=== PATIENT | male | born 1995 | race Caucasian/White ===

== ENCOUNTER 2018-03-08 00:22 | Emergency (ER) | payer SELFPAY ==
[2018-03-08] MEDS ORDERED: Sodium Chloride 0.9% 1,000 ML IV SCH (01:30)
--- NOTE | 2018-03-08 01:33 | ED PDOC ---
HPI: Psych/Substance Abuse Time Seen by Provider: 03/08/18 01:01 Chief Complaint (Nursing): Alcohol Ingestion Additional Complaint(s): 23 y/o M who was [place] to ED for [place] Pt seen sleeping in bed. Difficult to arouse but able to be aroused with sternal rub. Patient not speaking and agitated. Unable to obtain history. Past Medical History Vital Signs: Last Vital Signs Temp 97.3 F L 03/08/18 00:33 Pulse 78 03/08/18 00:33 Resp 18 03/08/18 00:33 BP 113/68 03/08/18 00:33 Pulse Ox 97 03/08/18 00:33 - Medical History PMH: Denies: Diabetes, Hepatitis, HIV, HTN, Seizures, Sexually Transmitted Disease - Family History Family History: States: Unknown Family Hx - Home Medications Home Medications: Ambulatory Orders Medication Instructions Recorded No Known Home Med 03/17/14 - Allergies Allergies/Adverse Reactions: Allergies Allergy/AdvReac Type Severity Reaction Status Date / Time No Known Allergies Allergy Unverified 03/17/14 14:22 Physical Exam - Reviewed Nursing Documentation Reviewed: Yes Vital Signs Reviewed: Yes - Physical Exam Appears: Negative for: Well (obtunded) Head Exam: Positive for: ATRAUMATIC Skin: Positive for: Normal Color Eye Exam: Positive for: PERRL, Conjunctival injection (B/L), Other Neck: Positive for: Normal Cardiovascular/Chest: Positive for: Regular Rate, Rhythm Respiratory: Positive for: Normal Breath Sounds Gastrointestinal/Abdominal: Positive for: Normal Exam Neurologic/Psych: Positive for: Alert (arousable to pain). Negative for: Facial Droop - Laboratory Results Result Diagrams: 03/08/18 03:04 03/08/18 03:04 - ECG O2 Sat by Pulse Oximetry: 97 Medical Decision Making Medical Decision Making: Pt intermittently agitated attempting to remove monitor. Haldol 5mg IM x 1 Ativan 2mg IM x 1 CBC, CMP, urine drug screen, Urine dip restraints for safety ETOH level 252 at 4am 06:00am: pt continues to be somnolent and difficult to arouse. Endorsed to Dr. Zhu pending clinical sobriety and re-evaluation. Disposition - Clinical Impression Clinical Impression: Alcohol abuse with intoxication - Disposition Disposition: Transfer of Care Disposition Time: 06:15 Condition: FAIR Forms: [employer] (Urdu)
[2018-03-08 02:16] LABS: BARBITURATES, UR NEGATIVE (NEGATIVE); BENZODIAZEPINES, UR NEGATIVE (NEGATIVE); OPIATES, UR NEGATIVE (NEGATIVE); PHENCYCLIDINE, UR NEGATIVE (NEGATIVE)
[2018-03-08 03:20] LABS: BLOOD UREA NITROGEN 12 mg/dl (9-20); CALCIUM 8.4 mg/dL (8.4-10.2); GFR NON-AFRICAN AMERICAN > 60
[2018-03-08 03:28] LABS: BASO % 0.2 % (0.0-2.0); EOS # 0.1 K/uL (0.0-0.7); EOS % 0.8 % (0.0-4.0); HEMOGLOBIN 14.4 g/dL (12.0-18.0); LYMPH # 2.8 K/uL (1.0-4.3); LYMPH % 46.4 % (20.0-40.0); MEAN CELL VOLUME 90.5 fl (80.0-94.0); MEAN CORPUSCULAR HEMOGLOBIN 29.5 pg (27.0-31.0); MEAN CORPUSCULAR HGB CONC 32.7 g/dL (33.0-37.0); MEAN PLATELET VOLUME 7.6 fl (7.2-11.7); MONO # 0.3 K/uL (0.0-0.8); MONO % 5.7 % (0.0-10.0); NEUT # 2.9 K/uL (1.8-7.0); NEUT % 46.9 % (50.0-75.0); NRBC % 0.2 % (0.0-0.0); RBC 4.86 Mil/uL (4.40-5.90); RED CELL DISTRIBUTION WIDTH 13.5 % (11.5-14.5); WHITE BLOOD COUNT 6.1 K/uL (4.8-10.8)
--- NOTE | 2018-03-08 06:14 | ED PDOC ---
- Laboratory Results Result Diagrams: 03/08/18 03:04 03/08/18 03:04 - ECG O2 Sat by Pulse Oximetry: 97 (RA) Pulse Ox Interpretation: Normal Medical Decision Making Medical Decision Making: Time: 06 Patient endorsed to me pending sobriety and reevaluation. ------ Scribe Attestation: Documented by Brian Oropeza, acting as a scribe for Mary Zhu MD. Provider Scribe Attestation: All medical record entries made by the Scribe were at my direction and personally dictated by me. I have reviewed the chart and agree that the record accurately reflects my personal performance of the history, physical exam, medical decision making, and the department course for this patient. I have also personally directed, reviewed, and agree with the discharge instructions and disposition. Disposition - Clinical Impression Clinical Impression: Alcohol abuse with intoxication - POA Present On Arrival: None - Disposition Disposition: Transfer of Care Disposition Time: 07:00 Condition: GOOD Instructions: Alcohol Use - When Is Drinking a Problem? Patient Signed Over To: Morgan Lozano
--- NOTE | 2018-03-08 07:25 | ED PDOC ---
- Laboratory Results Result Diagrams: 03/08/18 03:04 03/08/18 03:04 - ECG O2 Sat by Pulse Oximetry: 97 (RA) Pulse Ox Interpretation: Normal - Progress Re-evaluation Time: 13:30 Condition: Re-examined, Improved Medical Decision Making Medical Decision Makin Patient was endorsed to me by Dr. Zhu, pending sobriety and reevaluation. Scribe Attestation: Documented by Tyrell Snigh, acting as a scribe for Morgan Lozano MD. Provider Scribe Attestation: All medical record entries made by the Scribe were at my direction and personally dictated by me. I have reviewed the chart and agree that the record accurately reflects my personal performance of the history, physical exam, medical decision making, and the department course for this patient. I have also personally directed, reviewed, and agree with the discharge instructions and disposition. Disposition - Clinical Impression Clinical Impression: Alcohol abuse with intoxication - POA Present On Arrival: None - Disposition Disposition: Routine/Home Disposition Time: 13:30 Condition: GOOD Instructions: Alcohol Use - When Is Drinking a Problem?
[2018-03-08 13:53] VITALS: BP 128/68; PULSE 66; RESP 18; TEMP 98
[2018-03-09 04:10] VITALS: O2SAT 97
== END 2018-03-08 13:50 | disposition home or self-care (01) ==
LOC: H.ER 00:22
DX: F10.129 Alcohol abuse with intoxication, unspecified (principal)
CPT/HCPCS: 80048; 85025; 96372; 99283; G0480; J1630; J2060

== ENCOUNTER 2018-03-08 21:23 | Emergency (ER) | payer SELFPAY ==
[2018-03-08] MEDS ORDERED: Sodium Chloride 0.9% 1,000 ML IV STA (22:13)
[2018-03-08 22:38] LABS: BASO % 0.6 % (0.0-2.0); EOS % 0.5 % (0.0-4.0); HEMOGLOBIN 14.2 g/dL (12.0-18.0); LYMPH # 1.4 K/uL (1.0-4.3); LYMPH % 17.4 % (20.0-40.0); MEAN CELL VOLUME 88.7 fl (80.0-94.0); MEAN CORPUSCULAR HEMOGLOBIN 29.7 pg (27.0-31.0); MEAN CORPUSCULAR HGB CONC 33.5 g/dL (33.0-37.0); MEAN PLATELET VOLUME 7.4 fl (7.2-11.7); MONO # 0.5 K/uL (0.0-0.8); MONO % 6.2 % (0.0-10.0); NEUT # 6.2 K/uL (1.8-7.0); NEUT % 75.3 % (50.0-75.0); RBC 4.79 Mil/uL (4.40-5.90); RED CELL DISTRIBUTION WIDTH 13.6 % (11.5-14.5); WHITE BLOOD COUNT 8.3 K/uL (4.8-10.8)
[2018-03-08 22:51] LABS: ACETAMINOPHEN < 10.0 ug/ml (10.0-30.0); SALICYLATE < 1.0 mg/dl
--- NOTE | 2018-03-08 22:51 | ED PDOC ---
HPI: Psych/Substance Abuse Time Seen by Provider: 03/08/18 21:33 Chief Complaint (Nursing): Substance Abuse Chief Complaint (Provider): Substance Abuse ED Caveat: Intoxicated History Per: Family (Mother) History/Exam Limitations: intoxication Onset/Duration Of Symptoms: Hrs Current Symptoms Are (Timing): Still Present Suicide/Self Injury Attempted (Context): None Modifying Factor(s): Alcohol Additional Complaint(s): 23 y/o male with no significant PMHx brought into the ED for evaluation of p ossible intoxication. History is obtained from the mother as patient is unresponsive and unable to answer. Mother states patient texted his sister to pick him up from a certain location. Upon arrival, mother and sister found patient lying on the ground outside. Patient was poorly responsive and appeared very weak. Patient was brought home where he was barely able to stand or walk, thus prompting family to call Ambulance. Patient admits to smoking marijuana. Patient states he has smoked marijuana before but has never reacted this way. Of note, patient was seen here last night for alcohol abuse and discharged at 7 AM. Mother additional reports that last night patient seemed depressed, less vocal and more reserved. Mother denies any mention of suicidal ideaiton. Mother is requesting psychiatric evaluation in addition to management. PMD: unknown Past Medical History Reviewed: Historical Data, Nursing Documentation, Vital Signs Vital Signs: Last Vital Signs Temp 99 F 03/08/18 21:26 Pulse 89 03/08/18 22:01 Resp 15 03/08/18 22:01 BP 131/82 03/08/18 22:01 Pulse Ox 96 03/08/18 22:01 - Medical History PMH: No Chronic Diseases Denies: Diabetes, Hepatitis, HIV, HTN, Seizures, Sexually Transmitted Disease - Surgical History Surgical History: No Surg Hx - Family History Family History: States: No Known Family Hx - Social History Current smoker - smoking cessation education provided: Yes Alcohol: > 2 Drinks/Day Drugs: Other (Marijuana use) - Home Medications Home Medications: Ambulatory Orders Medication Instructions Recorded No Known Home Med 03/17/14 - Allergies Allergies/Adverse Reactions: Allergies Allergy/AdvReac Type Severity Reaction Status Date / Time No Known Allergies Allergy Unverified 03/17/14 14:22 Review of Systems Review Of Systems: ROS cannot be obtained secondary to pt's inabilty to answer questions. Physical Exam - Reviewed Nursing Documentation Reviewed: Yes Vital Signs Reviewed: Yes - Physical Exam Appears: Positive for: No Acute Distress (obtunded) Head Exam: Positive for: ATRAUMATIC, NORMOCEPHALIC Skin: Positive for: Warm, Dry Eye Exam: Positive for: Conjunctival injection, Other (Pupils are equal. Sluggish and roving eye movement. On attempt to open eyes, he clenches his eyes) ENT: Positive for: Other (Dry mucous membranes) Neck: Positive for: Painless ROM, Supple Cardiovascular/Chest: Positive for: Regular Rate, Rhythm. Negative for: Murmur Respiratory: Positive for: Normal Breath Sounds. Negative for: Respiratory Distress Gastrointestinal/Abdominal: Positive for: Soft. Negative for: Tenderness Back: Positive for: Normal Inspection. Negative for: Decreased ROM Extremity: Positive for: Normal ROM. Negative for: Deformity Lymphatic: Negative for: Adenopathy Neurologic/Psych: Positive for: Other (Unresponsive to painful stimuli). Neg ative for: Alert (obtunded) - Laboratory Results Result Diagrams: 03/08/18 22:30 03/08/18 22:30 - ECG O2 Sat by Pulse Oximetry: 96 (RA) Pulse Ox Interpretation: Normal Medical Decision Making Medical Decision Making: Time: 2211 Impression: Substance abuse rule out head injury Plan: -- CT head w/o Contrast -- EKG -- Acetaminophen -- Alcohol Serum -- CMP -- Urine Drug Screen -- Magnesium -- Phosphorous -- Salicylate -- ED Urine Dipstick -- CBC with Differentials -- Sodium Chloride 0.9% IV 1000 mls/hr -- Improvement Advisor -- IV Insertion -- Glucose, Blood, POC -- Urinary Straight Catheterization Time: 2300 On reassessment, patient suddenly became alert with dystonic movements of body and he states his entire body hurts; patient states he does not know why he is moving the way he is. Patient reports all he did was "smoke weed." Patient given IV Ativan and Benadrl. Prior chart reviewed, patient given ativan and haldol last night due to alcohol induced psychosis. -- Patient endorsed to Dr. Zhu, pending reassessment and final ER dispos ition. Scribe Attestation: Documented by Jason Santana, acting as a scribe for Dasia Cantor MD. Provider Scribe Attestation: All medical record entries made by the Scribe were at my direction and personally dictated by me. I have reviewed the chart and agree that the record accurately reflects my personal performance of the history, physical exam, medical decision making, and the department course for this patient. I have also personally directed, reviewed, and agree with the discharge instructions and disposition. Disposition - Clinical Impression Clinical Impression: Cannabis abuse - Patient ED Disposition Is Patient to be Admitted: Transfer of Care - Disposition Referrals: [facility] [Outside] [facility] [Outside] Disposition: Transfer of Care Disposition Time: 23:00 Condition: STABLE Patient Signed Over To: Mary Zhu
[2018-03-08 22:53] LABS: ALB/GLOB RATIO 1.5 (1.0-2.1); ALBUMIN 4.4 g/dL (3.5-5.0); ALT/SGPT 36 U/L (21-72); AST/SGOT 79 U/L (17-59); BLOOD UREA NITROGEN 16 mg/dl (9-20); GFR NON-AFRICAN AMERICAN > 60
[2018-03-08] MEDS ORDERED: DiphenhydrAMINE 50 mg/ml Inj ONE (23:11)
[2018-03-08] MEDS ORDERED: DiphenhydrAMINE 50 mg/ml Inj IVP STA (23:38)
--- NOTE | 2018-03-08 23:38 | ED PDOC ---
- Laboratory Results Result Diagrams: 03/08/18 22:30 03/08/18 22:30 - ECG O2 Sat by Pulse Oximetry: 96 (RA) Pulse Ox Interpretation: Normal Medical Decision Making Medical Decision Makin Patient signed out to me by Dr. Cantor pending reassessment, ER disposition. 2309 CT Head FINDINGS: BRAIN No acute intraparenchymal hemorrhage. No mass lesion. No CT evidence for acute territorial infarct. No midline shift or extra-axial collections. VENTRICLES: No hydrocephalus. ORBITS: The orbits are unremarkable. SINUSES AND MASTOIDS: The paranasal sinuses and mastoid air cells are clear. BONES: No fracture. SOFT TISSUES: Unremarkable. IMPRESSION: No acute intracranial abnormality. 0040 Urine tox screen reviewed, patient positive for cannabinoids. 0133 Patient is awake, alert and oriented x 3 with steady gait; patient is of normal affect and stable for discharge home. Repeat vital signs are normal. Patient instructed to follow up at [facility] within 1 week and if symptoms worsen or new symptoms arise, to return to the ER. Scribe Attestation: Documented by Emmy Maxwell, acting as a scribe for Mary Zhu MD. Provider Scribe Attestation: All medical record entries made by the Scribe were at my direction and personally dictated by me. I have reviewed the chart and agree that the record accurately reflects my personal performance of the history, physical exam, medical decision making, and the department course for this patient. I have also personally directed, reviewed, and agree with the discharge instructions and disposition. Disposition Counseled Patient/Family Regarding: Studies Performed, Diagnosis, Need For Followup - Clinical Impression Clinical Impression: Cannabis abuse - POA Present On Arrival: None - Disposition Referrals: [facility] [Outside] [facility] [Outside] Disposition: Routine/Home Disposition Time: 01:34 Condition: IMPROVED Additional Instructions: follow up with the clinic return to the ED with any worsening or concerning symptoms Instructions: Marijuana Use and Addiction (DC) Forms: [employer] (Sri Lankan)
[2018-03-09 00:07] LABS: BARBITURATES, UR NEGATIVE (NEGATIVE); BENZODIAZEPINES, UR NEGATIVE (NEGATIVE); OPIATES, UR NEGATIVE (NEGATIVE); PHENCYCLIDINE, UR NEGATIVE (NEGATIVE)
[2018-03-09 01:38] VITALS: BP 104/69; PULSE 71; RESP 18; TEMP 98
[2018-03-09 01:47] VITALS: O2SAT 96
--- NOTE | 2018-03-09 08:51 | CT ---
Date of service: 03/08/2018 PROCEDURE: CT HEAD WITHOUT CONTRAST. HISTORY: lethargy COMPARISON: None available. TECHNIQUE: Axial computed tomography images were obtained through the head/brain without intravenous contrast. Radiation dose: Total exam DLP = 784.53 mGy-cm. This CT exam was performed using one or more of the following dose reduction techniques: Automated exposure control, adjustment of the mA and/or kV according to patient size, and/or use of iterative reconstruction technique. FINDINGS: HEMORRHAGE: No intracranial hemorrhage. BRAIN: No mass effect or edema. No atrophy or chronic microvascular ischemic changes. VENTRICLES: Unremarkable. No hydrocephalus. CALVARIUM: Unremarkable. PARANASAL SINUSES: Incidentally noted is a rightward deviated nasal septum with rightward septal spurring. No significant inflammatory changes. MASTOID AIR CELLS: Unremarkable as visualized. No inflammatory changes. OTHER FINDINGS: Unremarkable IMPRESSION: No intracranial hemorrhage mass effect or other significant pathology appreciated Concordant results (preliminary interpretation) provided by [facility].
--- NOTE | 2018-03-10 00:01 | CARD ---
APPROVED REPORT Date of service: 03/08/2018 EKG Measurement Heart [id number] <Conclusion> Normal sinus rhythm Early repolarization Normal ECG
== END 2018-03-09 01:50 | disposition home or self-care (01) ==
LOC: H.ER 21:23
DX: F12.10 Cannabis abuse, uncomplicated (principal); F10.959 Alcohol use, unspecified with alcohol-induced psychotic disorder, unspecified; S09.90XA Unspecified injury of head, initial encounter; Y92.89 Other specified places as the place of occurrence of the external cause; F32.9 Major depressive disorder, single episode, unspecified
CPT/HCPCS: 70450; 80053; 82948; 83735; 84100; 85025; 93005; 96374; 96375; 99285; G0480; J1200; J2060; J7030